=== PATIENT | female | born 1990 | race Caucasian/White ===

== ENCOUNTER 2020-06-09 20:12 | Emergency (ER) | payer BC, SELFPAY ==
[~2020-06-09] VITALS: Ht 152.4 cm; Wt 113.4 kg
[2020-06-09 20:14] VITALS: BP 144/96; Ht 152.4 cm; Wt 113.4 kg
== END 2020-06-10 01:29 | disposition home or self-care (01) ==
LOC: ED 20:12
DX: U07.1 COVID-19 (principal); J12.89 Other viral pneumonia